=== PATIENT | male | born 1975 | race Caucasian/White ===

== ENCOUNTER 2018-12-19 13:45 | Emergency (ER) | payer BC, OTHER ==
[~2018-12-19] VITALS: Ht 177.8 cm; Wt 90.7 kg
[2018-12-19 14:17] LABS: BASOPHILS # (AUTO) 0.1 K/uL (0.0-8.0); BASOPHILS % (AUTO) 0.7 % (0.0-2.0); EOSINOPHILS % (AUTO) 0.4 % (0.0-7.0); HEMATOCRIT 41.1 % (36.7-47.1); HEMOGLOBIN 13.8 g/dL (12.5-16.3); LYMPHOCYTES # (AUTO) 2.6 K/uL (20.0-40.0); MEAN CORPUSCULAR HEMOGLOBIN 28.7 uug (23.8-33.4); MEAN CORPUSCULAR HGB CONC 34 g/dL (32.5-36.3); MEAN CORPUSCULAR VOLUME 85.2 fL (73.0-96.2); MONOCYTES # (AUTO) 0.8 K/uL (2.0-10.0); MONOCYTES % (AUTO) 10.5 % (0.0-11.0); NEUTROPHILS % (AUTO) 53.4 % (38.5-71.5); PLATELET COUNT (AUTO) 221 K/uL (152-348); RED BLOOD CELL COUNT(AUTO) 4.82 MIL/uL (4.06-5.63); WHITE BLOOD COUNT (AUTO) 7.5 K/uL (3.6-10.2)
--- NOTE | 2018-12-19 14:25 | NUR ---
[employer] assumes care- patient is sleeping on his left side, respiration:easy, PAULSON, non-verbal, moans when stimulated, maintained on continuous spO2 & BP monitor with alarms set, on & audible.
[2018-12-19 14:30] LABS: ALANINE AMINOTRANSFERASE 37 U/L (16-63); ALKALINE PHOSPHATASE 97 U/L (50-136); ASPARTATE AMINOTRANSFERASE 102 U/L (15-37); BILIRUBIN,DIRECT 0.1 mg/dL (0.0-0.2); BILIRUBIN,TOTAL 0.6 mg/dL (0.2-1.0); CARBON DIOXIDE 25 mmol/L (21-32); CHLORIDE 99 mmol/L (98-107); CREATININE 0.8 mg/dL (0.6-1.3); GLUCOSE 117 mg/dL (74-106); POTASSIUM 3.5 mmol/L (3.5-5.1); TOTAL PROTEIN, SERUM 8.4 g/dL (6.4-8.2); UREA NITROGEN, BLOOD 15 mg/dL (7-18)
[2018-12-19 14:35] LABS: ACETAMINOPHEN < 2.0 ug/mL (10-30)
[2018-12-19 15:09] LABS: ETHANOL 359 MG/DL (0-0)
--- NOTE | 2018-12-19 16:49 | NUR ---
Patient is seen sleeping comfortably on the gurney. He is moving by himself without assistance, maintaining his SpO2 levels above 96% on room air.
--- NOTE | 2018-12-19 18:36 | NUR ---
For soberiety, dinner tray is at bedside. For discharge when patient is alert, OX3-4 & appropriate per Dr Dubon.
--- NOTE | 2018-12-19 19:06 | NUR ---
Hands off report to RN Ti.
--- NOTE | 2018-12-19 19:10 | NUR ---
Received report from Valeria LERNER, assumed care of pt.,
--- NOTE | 2018-12-19 19:20 | NUR ---
Pt. eating in room, does not answer questions, RR even and unlabored, NAD
--- NOTE | 2018-12-19 19:52 | NUR ---
Pt. was posturing and ran off unit refusing to have IV removed, refusing to sign d/c papers, [employer] non-emergency called for pt. elopement,
--- NOTE | 2018-12-19 19:52 | NUR ---
Pt. A/O and responsive but did not want to cooperate w/ questions, refused to state his name when questioned, pt. last seen heading [place] on [facility]. ambulating w/ steady gait,
== END 2018-12-19 21:55 | disposition left against medical advice (07) ==
LOC: EDBD → ER 13:47
DX: F10.129 Alcohol abuse with intoxication, unspecified (principal); Y90.8 Blood alcohol level of 240 mg/100 ml or more
CPT/HCPCS: 36415; 80048; 80076; 85025; 99283; G0480 ×2; G0481; A4663

== ENCOUNTER 2018-12-20 10:51 | Emergency (ER) | payer BC, OTHER ==
[~2018-12-20] VITALS: Ht 177.8 cm; Wt 90.7 kg
--- NOTE | 2018-12-20 10:53 | NUR ---
PT IS NON-VERBAL, BIB [facility], DUE TO AMS SUSPECTED OF ETOH. PT IS NON-VERBAL, BUT OBEYS COMMANDS AND EYES ARE TRACKING. PER TESTING DIRECTOR'S REPORT, PT WAS FOUND ON THE STREET W/ A HALF EMPTY BOTTLE OF LISTERINE. PT PRESENTS W/ ETOH SMELL ON BREATH. VSS. UNKNOWN MEDICAL HISTORY W/ NO IDENTIFICATIONS FOUND ON PT. PT WAS BROUGHT IN W/ AN 18G IV ACCESS IN L WRIST, PATENT IV ACCESS. PT DOES NOT APPEAR TO BE IN ANY APPARENT DISTRESS AT THIS TIME.
--- NOTE | 2018-12-20 10:59 | NUR ---
ANA PETE AT BEDSIDE FOR MSE.
--- NOTE | 2018-12-20 11:59 | NUR ---
Patient out of unit for ct scan with no distress noted
[2018-12-20 12:06] LABS: CARBON DIOXIDE 26 mmol/L (21-32); CHLORIDE 101 mmol/L (98-107); CREATININE 0.5 mg/dL (0.6-1.3); GLUCOSE 93 mg/dL (74-106); POTASSIUM 4.1 mmol/L (3.5-5.1); UREA NITROGEN, BLOOD 12 mg/dL (7-18)
[2018-12-20 12:11] LABS: ALANINE AMINOTRANSFERASE 43 U/L (16-63); ALKALINE PHOSPHATASE 99 U/L (50-136); ASPARTATE AMINOTRANSFERASE 109 U/L (15-37); BILIRUBIN,DIRECT 0.1 mg/dL (0.0-0.2); BILIRUBIN,TOTAL 0.5 mg/dL (0.2-1.0); TOTAL PROTEIN, SERUM 8.1 g/dL (6.4-8.2)
[2018-12-20 12:12] LABS: ACETAMINOPHEN < 2.0 ug/mL (10-30)
[2018-12-20] MEDS ORDERED: HALOPERIDOL LACTATE 5 MG/1 ML VIAL IM ONE ×2 (12:15→12:45)
[2018-12-20] MEDS ORDERED: diphenhydrAMINE 50 MG/1 ML VIAL IM ONE ×2 (12:15→12:45)
--- NOTE | 2018-12-20 12:15 | NUR ---
Patient back from ct scan with no distress noted. Tech unable to complete test
[2018-12-20] MEDS ORDERED: diphenhydrAMINE 50 MG/1 ML VIAL ONE ×2 (12:16→12:47)
[2018-12-20] MEDS ORDERED: HALOPERIDOL LACTATE 5 MG/1 ML VIAL ONE ×2 (12:16→12:47)
[2018-12-20 12:28] LABS: ETHANOL 411 MG/DL (0-0)
[2018-12-20 12:37] LABS: *BILIRUBIN,URIN NEGATIVE (NEGATIVE); *BLOOD, URINE 1+ (NEGATIVE); *CLARITY,URINE CLEAR (CLEAR); *COLOR,URINE YELLOW (YELLOW); *KETONES,URINE TRACE (NEGATIVE); *UROBILINOGEN,URINE 0.2 E.U./dl (NORMAL); LEUKOCYTE ESTERASE ,URINE NEGATIVE (NEGATIVE); NITRITE, URINE NEGATIVE (NEGATIVE); PH,URINE 6.5 (5.0-8.0); UGLUCOSE NEGATIVE (NEGATIVE)
[2018-12-20 12:40] LABS: *AMPHETAMINE, URINE NEGATIVE (NEGATIVE); *BARBITURATE, URINE NEGATIVE (NEGATIVE); *CANNABINOID, URINE NEGATIVE (NEGATIVE); *COCCAINE, URINE NEGATIVE (NEGATIVE); *OPIATE, URINE NEGATIVE (NEGATIVE); *PHENCYCLIDINE SCREEN,URINE NEGATIVE (NEGATIVE)
[2018-12-20 12:44] LABS: BACTERIA,URINE FEW /HPF (NONE SEEN); RBC,URINE 0-3 /HPF (0-3); SQUAMOUS EPITHELIAL CELL,UR FEW /HPF (NONE SEEN); WBC,URINE 0-3 /HPF (0-3)
--- NOTE | 2018-12-20 12:44 | NUR ---
Patient confused attempting to elope and walk out of room. Dr Bowens made aware
[2018-12-20] MEDS ORDERED: LORAZEPAM 2 MG/1 ML VIAL IM ONE ×2 (12:45→20:30)
[2018-12-20] MEDS ORDERED: LORAZEPAM 2 MG/1 ML VIAL ONE ×3 (12:47→20:38)
--- NOTE | 2018-12-20 13:03 | NUR ---
Patient confused,agitated and screaming. Unable to redirect. ERMD aware
[2018-12-20] MEDS ORDERED: LORAZEPAM 2 MG/1 ML VIAL IV ONE (13:15)
--- NOTE | 2018-12-20 13:36 | NUR ---
Patient sleeping on gurny with no distress noted
--- NOTE | 2018-12-20 13:50 | NUR ---
Patient screaming intermittenly. Unabe to redirect when screaming. No distress noted
--- NOTE | 2018-12-20 14:08 | NUR ---
1:1 sitter at bedside
[2018-12-20] MEDS ORDERED: IV NORMAL SALINE 1000 ML BAG IV ONE (14:45)
--- NOTE | 2018-12-20 15:00 | NUR ---
Patient out of unit for ct scan via gurny
--- NOTE | 2018-12-20 15:20 | NUR ---
Patient back from ct scan with no distress noted
--- NOTE | 2018-12-20 16:22 | NUR ---
Patient sleeping with no distress noted. 1:1 sitter at bedside
--- NOTE | 2018-12-20 18:23 | NUR ---
PT AWAKE, TALKING IN SHORT SENTENCES. PT PROVIDED W/ WATER PER REQUEST.
--- NOTE | 2018-12-20 20:00 | NUR ---
Patient tolerated meal with no distress noted
--- NOTE | 2018-12-20 23:03 | NUR ---
IV access removed, catheter intact.
--- NOTE | 2018-12-20 23:05 | NUR ---
Patient able to ambulated with steady gait
--- NOTE | 2018-12-20 23:10 | NUR ---
Patient given written and verbal discharge instructions. Patient verbalizes understanding of instructions. Patient is ambulatory with steady gait. Refuses offer of [facility] placement. Patient given list of available shelters in surrounding area.
[2018-12-20 23:15] VITALS: BP 128/66
== END 2018-12-20 23:16 | disposition home or self-care (01) ==
LOC: EDBD 10:51 → ER 10:51
DX: F10.129 Alcohol abuse with intoxication, unspecified (principal); Y90.8 Blood alcohol level of 240 mg/100 ml or more
CPT/HCPCS: 36415; 70450; 80048; 80076; 80307; 81001; 96372 ×6; 96374; 99284; G0480 ×2; G0481; J1200 ×2; J1630 ×2; J2060 ×3; A4663; C1758; J7030

== ENCOUNTER 2018-12-21 00:33 | Emergency (ER) | payer BC, OTHER ==
[~2018-12-21] VITALS: Ht 182.9 cm; Wt 81.6 kg
--- NOTE | 2018-12-21 01:00 | NUR ---
PATIENT BIB RESCUE, FOR ETOH INTOXICATION. PATIENT WAS FOUND DRINKING ALCOHOL OUTSIDE A SHOPPING CENTER. PATIENT WAS JUST DISCHARGED AT AROUND 2300. PATIENT SMELLS OF ALCOHOL AT THIS TIME.
--- NOTE | 2018-12-21 01:05 | NUR ---
PATIENT IS CONFUSED AND DISORIENTED, NOT FOLLOWING COMMANDS AT THIS TIME, PULLING ON LINES, HIGH RISK FOR FALLS. SOFT 4 POINT RESTRAINT ORDERED AND APPLIED.
--- NOTE | 2018-12-21 02:15 | NUR ---
PATIENT IS ASLEEP AT THIS TIME, RESTRAINTS REMOVED, NO SKIN BREAKDOWN NOTED. PATIENT REPOSITIONED INDEPENDENTLY. WILL MONITOR.
[2018-12-21] MEDS ORDERED: LORAZEPAM 2 MG/1 ML VIAL ONE (06:09)
[2018-12-21] MEDS ORDERED: LORAZEPAM 2 MG/1 ML VIAL IM ONE (06:15)
--- NOTE | 2018-12-21 06:20 | NUR ---
PATIENT IS AWAKE AT THIS, UNSTEADY ON HIS FEET, NOT REDIRECTABLE AT THIS TIME, COMBATIVE TOWRDS STAFF. [facility] RA[facility]EEV WAS CALLED. MEDIACTION GIVEN ORDERED. RESTRAINT ORDERED RECEIVED AND APPLIED TO PATIENT. WILL MONITOR.
[2018-12-21] MEDS ORDERED: HALOPERIDOL LACTATE 5 MG/1 ML VIAL ONE (06:50)
[2018-12-21] MEDS ORDERED: diphenhydrAMINE 50 MG/1 ML VIAL ONE (06:50)
--- NOTE | 2018-12-21 06:50 | NUR ---
PATIENT IS YELLING AND SCREAMING, UNABLE TO REDIRECT. NEW ORDERS RECEIVED. WILL MONITOR.
[2018-12-21] MEDS ORDERED: diphenhydrAMINE 50 MG/1 ML VIAL IM ONE (07:00)
[2018-12-21] MEDS ORDERED: HALOPERIDOL LACTATE 5 MG/1 ML VIAL IM ONE (07:00)
--- NOTE | 2018-12-21 07:06 | NUR ---
REPORT GIVEN TO EDUARDA NUNN.
--- NOTE | 2018-12-21 07:20 | NUR ---
Remove all restraines, pt is cohorent and responsive, A/O x3. Dr Rose at the bedside for MSE. Fluids provided. Pt able to walk w/ steady gait.
--- NOTE | 2018-12-21 07:35 | NUR ---
Per Dr Rose evaluation and pt condition. Pt will be discharge home. Pt placed a ride request from [facility].
--- NOTE | 2018-12-21 07:41 | NUR ---
Patient discharged to home in stable conditon. Written and verbal after care instructions given. Patient verbalizes understanding of instructions. Pt left ER w/ steady gait.
[2018-12-21 07:42] VITALS: BP 112/60
== END 2018-12-21 07:43 | disposition home or self-care (01) ==
LOC: ER 00:34
DX: F10.129 Alcohol abuse with intoxication, unspecified (principal); Y90.8 Blood alcohol level of 240 mg/100 ml or more
CPT/HCPCS: 36415; 96372 ×3; 99283; G0480; J1200; J1630; J2060; A4663

== ENCOUNTER 2018-12-21 08:55 | Emergency (ER) | payer BC, OTHER ==
[~2018-12-21] VITALS: Ht 182.9 cm; Wt 81.6 kg
--- NOTE | 2018-12-21 09:39 | NUR ---
rePatient is resting comfortably in bed with eyes closed, NAD noted.
--- NOTE | 2018-12-21 11:09 | NUR ---
Patient is resting comfortably in bed with eyes closed, NAD noted.
--- NOTE | 2018-12-21 13:21 | NUR ---
Woke pt up for lunch, decline lunch, but drank water. sleeping on freq rounds.
--- NOTE | 2018-12-21 16:00 | NUR ---
Pt awake and wishes to leave, verbal ACI given by MD. Pt verbalized understanding of instructions. Pt left ER w/ steady gait.
[2018-12-21 16:05] VITALS: BP 118/67
== END 2018-12-21 16:06 | disposition home or self-care (01) ==
LOC: ER 08:55
DX: F10.129 Alcohol abuse with intoxication, unspecified (principal); Y90.9 Presence of alcohol in blood, level not specified
CPT/HCPCS: A4663